=== PATIENT | male | born 1975 | race American Indian/Alaskan Native ===

== ENCOUNTER 2021-12-09 09:56 | Emergency (ER) | payer MEDICARE, MEDICAID ==
[2021-12-09 11:13] VITALS: BP 119/80
== END 2021-12-09 12:00 | disposition left against medical advice (07) ==
LOC: ED 09:56
DX: R50.9 Fever, unspecified (principal); J02.9 Acute pharyngitis, unspecified; Z53.21 Procedure and treatment not carried out due to patient leaving prior to being seen by health care provider